=== PATIENT | male | born 1995 | race Caucasian/White ===

== ENCOUNTER 2019-09-06 17:22 | Emergency (ER) | payer BC, OTHER ==
--- NOTE | 2019-09-06 18:03 | EDM.PDOC ---
ED HPI GENERAL MEDICAL PROBLEM - General Chief Complaint: Upper Extremity Injury/Pain Stated Complaint: Hit right hand with a hammer Time Seen by Provider: 09/06/19 17:52 Source of Information: Reports: Patient History Limitations: Reports: No Limitations - History of Present Illness INITIAL COMMENTS - FREE TEXT/NARRATIVE: Patient here to have right index finger evaluated. Had finger crushed between handle of hammer and frame of [employer] he was working on yesterday. Small abrasion on finger. Hurts more today than yesterday. Was able to finish his shift. Some numbness of whole finger reported. Unable to fully bend. No other trauma to hand or other fingers. No other complaints.Was wearing thick work glove at time. - Related Data Allergies Allergy/AdvReac Type Severity Reaction Status Date / Time amoxicillin Allergy Cannot Verified 09/06/19 17:25 Remember Penicillins Allergy Cannot Verified 09/06/19 17:25 Remember Home Meds: Home Meds . [No Known Home Meds] 09/06/19 [History] Past Medical History Psychiatric History: Reports: ADHD, Other (See Below) (Reports feeling some depression/anxiety lately. Plans to see provider at clinic this week for this. Also history of previous drug abuse issues but reports he has stopped using illicit drugs other than occasional pot.) Social & Family History - Tobacco Use Smoking Status *Q: Current Every Day Smoker Years of Tobacco use: 14 Packs/Tins Daily: 0.7 Tobacco Use Comment: patient currently trying to quit smoking - Caffeine Use Caffeine Use: Reports: Coffee, Energy Drinks, Soda - Recreational Drug Use Recreational Drug Use: Yes Recreational Drug Type: Reports: Marijuana/Hashish Recreational Drug Use Frequency: Socially Review of Systems - Review of Systems Review Of Systems: See Below Musculoskeletal: Reports: Other (right index finger pain) Skin: Reports: Other (abrasion right index finger) Neurological: Reports: Other (numbness of right index finger) Psychiatric: Reports: Depression, Anxiety. Denies: Confusion, Mood Lability, Cravings, Hallucinations, Suicidal Ideation, Homicidal Ideation, Hallucinations (Auditory), Hallucinations (Visual) ED EXAM, GENERAL - Physical Exam Exam: See Below Exam Limited By: No Limitations General Appearance: Alert, WD/WN, No Apparent Distress Eye Exam: Bilateral Eye: EOMI, PERRL Ears: Hearing Grossly Normal Nose: No: Nasal Deformity, Nasal Swelling, Nasal Drainage Throat/Mouth: Normal Lips, Normal Voice, No Airway Compromise Head: Atraumatic, Normocephalic Neck: Supple Respiratory/Chest: No Respiratory Distress Extremities: Other (right index finger mildly swollen. Vascularly intact with brisk cap refill nailbed/tip of finger. Able to flex and extend but with some pain limitation. Small abrasion noted proximal dorsal finger. No drainage noted. Rest of hand/fingers unremarkable) Neurological: Alert, Oriented, Normal Cognition Psychiatric: Normal Affect, Normal Mood Skin Exam: Warm, Dry, Other (mild abrasion dorsal right index finger) Course - Vital Signs Last Recorded V/S: Last Vital Signs Temp 35.6 C L 09/06/19 17:26 Pulse 92 09/06/19 17:26 Resp 20 09/06/19 17:26 BP 131/72 09/06/19 17:26 Pulse Ox 96 09/06/19 17:26 - Orders/Labs/Meds Orders: Active Orders 24 hr Category Date Time Status Fingers Second Digit Rt F6 [CR] Stat Exams 09/06/19 17:38 Ordered Meds: Medications Discontinued Medications Generic Name Dose Route Start Last Admin Trade Name Freq PRN Reason Stop Dose Admin Neomycin/Polymyxin/Bacitracin 1 each 09/06/19 18:21 09/06/19 18:31 Triple Antibiotic Oint TOP 09/06/19 18:22 1 each ONETIME ONE Administration - Re-Assessments/Exams Free Text/Narrative Re-Assessment/Exam: 09/06/19 19:23 Xray did not show any fracture involving finger. Time spent with patient discussing his concerns with anxiety/depression, including interventions such as diet change/meditation that he may find helpful. Resources to consider provided. He is to follow up as planned this week with primary clinic and discuss possible medication therapy for this. Can have finger rechecked at that time and further work restriction as needed if indicated. Antibiotic ointment and bandage applied to finger prior to discharge, including pre-joce finger splint for protection and comfort. Departure - Departure Time of Disposition: 18:30 Disposition: Home, Self-Care 01 Condition: Good Clinical Impression: Crushing injury of right index finger, initial encounter - Discharge Information *PRESCRIPTION DRUG MONITORING PROGRAM REVIEWED*: Not Applicable *COPY OF PRESCRIPTION DRUG MONITORING REPORT IN PATIENT MARTIN: Not Applicable Instructions: Crush Injury of the Hand, [id number] Referrals: PCP,None [Primary Care Provider] - Forms: ED Department Discharge Additional Instructions: Wear splint for comfort and protection. No work until you are followed up Sunday for recheck at a local clinic. Further restrictions as needed at that time. Ibuprofen or Tylenol or Aleve for pain as needed. Sepsis Event Note (ED) - Evaluation Sepsis Screening Result: No Definite Risk - Focused Exam Vital Signs: Vital Signs Temp Pulse Resp BP Pulse Ox 09/06/19 17:26 35.6 C L 92 20 131/72 96 - My Orders Last 24 Hours: My Active Orders 09/06/19 17:38 Fingers Second Digit Rt F6 [CR] Stat - Assessment/Plan Last 24 Hours: My Active Orders 09/06/19 17:38 Fingers Second Digit Rt F6 [CR] Stat
[2019-09-06] MEDS ORDERED: Bacitracin/Neomycin/Polymyxin B Oint 0.9 GM U/D Packet TOP ONE (18:21)
== END 2019-09-06 18:50 | disposition home or self-care (01) ==
LOC: LL.ED 17:22
DX: S67.190A Crushing injury of right index finger, initial encounter (principal); F17.210 Nicotine dependence, cigarettes, uncomplicated; Z88.1 Allergy status to other antibiotic agents; Z88.0 Allergy status to penicillin; W23.0XXA Caught, crushed, jammed, or pinched between moving objects, initial encounter
CPT/HCPCS: 73140-F6; 99283-25

== ENCOUNTER 2020-02-13 20:20 | Emergency (ER) | payer BC, OTHER ==
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
[2020-02-13 21:18] LABS: BARBITURATE SCREEN,URINE NEGATIVE (NEGATIVE); BENZODIAZEPINES SCREEN,URINE NEGATIVE (NEGATIVE); EDDP,URINE SCREEN NEGATIVE (NEGATIVE); TCA SCREEN,URINE NEGATIVE (NEGATIVE); THC SCREEN,URINE 50 NG/ML POSITIVE (NEGATIVE)
== END 2020-02-13 21:40 | disposition home or self-care (01) ==
LOC: LL.ED 20:20
DX: S90.31XA Contusion of right foot, initial encounter (principal); F12.90 Cannabis use, unspecified, uncomplicated; Z71.6 Tobacco abuse counseling; F17.210 Nicotine dependence, cigarettes, uncomplicated; F17.220 Nicotine dependence, chewing tobacco, uncomplicated; F19.90 Other psychoactive substance use, unspecified, uncomplicated; J45.909 Unspecified asthma, uncomplicated; F41.8 Other specified anxiety disorders; F90.9 Attention-deficit hyperactivity disorder, unspecified type; Y99.0 Civilian activity done for income or pay; Z88.1 Allergy status to other antibiotic agents; Z88.0 Allergy status to penicillin; Z79.899 Other long term (current) drug therapy; W22.8XXA Striking against or struck by other objects, initial encounter
CPT/HCPCS: 36415; 73630-RT; 80305-QW; 80307; 99283

== ENCOUNTER 2020-07-05 08:10 | Emergency (ER) | payer SELFPAY ==
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
[2020-07-05] MEDS ORDERED: Sodium Chloride 0.9% 10 ML Syringe FLUSH PRN (09:05)
[2020-07-05 09:35] LABS: PTT,PARTIAL THROMBOPLSTIN TIME 24.5 SEC (24.5-32.8)
[2020-07-05 09:46] LABS: CHLORIDE,CL 99 mmol/L (98-107); SODIUM,NA 137 mmol/L (136-145)
[2020-07-05] MEDS: Lactated Ringers 1,000 ML IV ONE (10:11)
[2020-07-05] MEDS: Potassium Chloride 20 MEQ Tab.ER PO ONE (10:34)
[2020-07-05 11:43] LABS: BARBITURATE SCREEN,URINE NEGATIVE (NEGATIVE); BENZODIAZEPINES SCREEN,URINE POSITIVE (NEGATIVE); EDDP,URINE SCREEN NEGATIVE (NEGATIVE); TCA SCREEN,URINE NEGATIVE (NEGATIVE); THC SCREEN,URINE 50 NG/ML POSITIVE (NEGATIVE)
== END 2020-07-05 12:27 | disposition home or self-care (01) ==
LOC: LL.ED 08:10
DX: M25.512 Pain in left shoulder (principal); M25.562 Pain in left knee; J45.20 Mild intermittent asthma, uncomplicated; F41.8 Other specified anxiety disorders; F19.90 Other psychoactive substance use, unspecified, uncomplicated; M54.2 Cervicalgia; K02.9 Dental caries, unspecified; S09.90XA Unspecified injury of head, initial encounter; E87.6 Hypokalemia; R74.01 Elevation of levels of liver transaminase levels; R74.8 Abnormal levels of other serum enzymes; M25.522 Pain in left elbow; J45.909 Unspecified asthma, uncomplicated; Z71.6 Tobacco abuse counseling; Z72.0 Tobacco use; Z88.0 Allergy status to penicillin
CPT/HCPCS: 36415; 70450; 71046; 72125; 73030-LT; 73080-LT; 73562-LT; 80053; 80305-QW; 80307; 81001; 82150; 82550; 82553; 83605; 83690; 83735; 84550; 85025; 85610; 85730; 87086; 99284; 99284-25; A9270-GY; J7120

== ENCOUNTER 2023-07-30 16:58 | Emergency (ER) | payer OTHER, BC ==
[2023-07-30] MEDS: Take Home: Cyclobenzaprine 10 MG Tab, 4 Tab Pack PO ONE (18:01)
== END 2023-07-30 18:10 | disposition home or self-care (01) ==
LOC: LL.ED 16:58
DX: M54.50 Low back pain, unspecified (principal); F17.210 Nicotine dependence, cigarettes, uncomplicated; Z86.16 Personal history of COVID-19; Z79.899 Other long term (current) drug therapy; Z88.0 Allergy status to penicillin; Z88.1 Allergy status to other antibiotic agents
CPT/HCPCS: 99283; A9270-GY

== ENCOUNTER 2024-02-05 03:06 | Emergency (ER) | payer BC ==
[2024-02-05 03:50] LABS: BASOPHILS ABSOLUTE AUTO 0.08 K/uL (0.00-0.20); BASOPHILS PERCENT AUTO 0.7 % (0.0-2.0); EOSINOPHILS ABSOLUTE AUTO 0.79 K/uL (0.00-0.50); HEMATOCRIT 42.8 % (39.0-49.0); HEMOGLOBIN 14.8 g/dL (13.1-16.8); IMMATURE GRAN ABSOLUTE AUTO 0.02 10^3/uL (0.00-0.50); IMMATURE GRAN PERCENT AUTO 0.2 % (0.0-5.0); LYMPHOCYTES ABSOLUTE AUTO 3.48 K/uL (0.50-3.50); MEAN CORPUSCULAR HGB CONC 34.6 g/dL (31.7-36.0); MEAN CORPUSCULAR VOLUME 92.4 fL (84.0-98.0); MONOCYTES ABSOLUTE AUTO 1.05 K/uL (0.00-1.00); MONOCYTES PERCENT AUTO 9.3 % (2.0-14.0); NEUTROPHILS ABSOLUTE AUTO 5.82 K/uL (1.40-7.00); NEUTROPHILS PERCENT AUTO 51.8 % (45.0-80.0); PLATELET COUNT,PLT 343 K/uL (150-350); RED BLOOD CELL COUNT 4.63 M/uL (4.33-5.41); RED CELL DISTRIBUTION WIDTH 13.1 % (11.2-14.1); WHITE BLOOD CELL COUNT,WBC 11.2 K/uL (4.0-10.2)
[2024-02-05 04:06] LABS: ALANINE AMINOTRANSFERASE,ALT 65 U/L (12-78); ALBUMIN 3.6 g/dL (3.4-5.0); ALKALINE PHOSPHATASE 95 IU/L (46-116); ASPARTATE AMNIOTRANSFERASE,AST 32 U/L (15-37); BILIRUBIN TOTAL 0.7 mg/dL (0.2-1.0); BLOOD UREA NITROGEN,BUN 19 mg/dL (7-18); CALCIUM 8.4 mg/dL (8.5-10.1); CHLORIDE,CL 103 mmol/L (98-107); CREATININE 1.32 mg/dL (0.51-1.17); GLUCOSE RANDOM 118 mg/dL (70-99); POTASSIUM,K 4.7 mmol/L (3.5-5.1); PROTEIN TOTAL,TP 7.3 g/dL (6.4-8.2); SODIUM,NA 138 mmol/L (136-145)
[2024-02-05 04:07] LABS: ESTIMATED GFR 74 mL/min (>=60)
[2024-02-05] MEDS: Take Home: Azithromycin 250 MG 5 Day, 6 Tab Pack PO ONE (04:24)
== END 2024-02-05 04:40 | disposition home or self-care (01) ==
LOC: LL.ED 03:06
DX: J44.1 Chronic obstructive pulmonary disease with (acute) exacerbation (principal); Z86.16 Personal history of COVID-19; Z87.891 Personal history of nicotine dependence; Z88.0 Allergy status to penicillin
CPT/HCPCS: 36415; 71046; 80053; 85025; 87428-QW; 99284; A9270-GY